=== PATIENT | female | born 1970 | race Caucasian/White ===

== ENCOUNTER → 2017-01-05 | Outpatient (CLI) | payer BC ==
--- NOTE | 2017-01-05 15:15 | KCIC ---
LOWER EXT JOINT WO LT dated 01/05/2017 2:00 PM Indication: Pain difficulty bearing weight strain injury heard pop 6 days ago. Comparison: No comparison is available. Technique: Routine multiplanar multisequence imaging performed. . Findings: Bone marrow signal is homogeneous. No marrow edema. Mild tricompartmental hypertrophic change. Thinning and surface irregularity of the articular cartilage throughout. There is full-thickness cartilage loss at the medial aspect of the lateral femoral condyle. Full-thickness cartilage loss at the lateral patellar facet, patellar apex and trochlear groove. Small joint effusion. Small popliteal cyst. No intra-articular loose body. Anterior cruciate and posterior cruciate ligaments are intact. Medial and lateral collateral complexes are intact. Mild thickening of the proximal MCL without significant surrounding soft tissue edema. Iliotibial band, popliteus tendon and pes anserine complex within normal limits. Quadriceps and patellar tendon are intact. No abnormality of the medial or lateral retinaculum. There is a focal radial defect at the medial meniscal root. Linear signal at the medial meniscal body does not appear to reach an articular surface. The lateral meniscus is normal in morphology and signal. IMPRESSION: 1. Mild tricompartmental degenerative arthrosis and chondromalacia.. There is full-thickness cartilage loss at the anterior and lateral compartments. 2. Focal radial tear at the medial meniscal root, likely degenerative. 3. Mild thickening of the proximal medial collateral ligament complex, nonspecific. This could be related to old strain injury or subacute low-grade strain. 4. Small joint effusion. Electronically signed by: Nabil Villanueva MD (01/05/2017 3:12 PM) [id number]
== END | disposition home or self-care (01) ==
LOC: KCIC MRI 13:51
PROVIDERS: ATTEND Orthopaedic Surgery
DX: S83.242A Other tear of medial meniscus, current injury, left knee, initial encounter (principal); M94.262 Chondromalacia, left knee; X58.XXXA Exposure to other specified factors, initial encounter; Y93.89 Activity, other specified; Y92.89 Other specified places as the place of occurrence of the external cause; Y99.8 Other external cause status
CPT/HCPCS: 73721